=== PATIENT | male | born 1990 | race American Indian/Alaskan Native ===

== ENCOUNTER 2018-12-26 06:23 | Emergency (ER) | payer OTHER ==
[2018-12-26 06:32] VITALS: BP 131/81
--- NOTE | 2018-12-26 07:07 | XRay Report ---
PROCEDURE: XR HUMERUS 2+V RT TECHNIQUE: Right humerus radiographs, AP and lateral views. HISTORY: fall, pain and swelling to elbow and upper arm COMPARISONS: None . FINDINGS: Fracture (s) and/or Dislocation(s): None . Joint space(s): Normal . Soft tissues: Normal . Bone mineralization: Normal . Foreign bodies: None . IMPRESSION: Normal Examination . This document is electronically signed by Jan Velazquez MD., December 26 2018 07:05:28 AM ET
--- NOTE | 2018-12-26 07:48 | XRay Report ---
PROCEDURE: XR ELBOW 2V RT TECHNIQUE: AP and lateral views right elbow HISTORY: fall, pain and swelling to elbow and upper arm COMPARISONS: None FINDINGS: Right elbow joint effusion is present. Minimal articular surface irregularity involving the radial he ad on lateral view. No other potential fractures are seen. The distal humerus appears intact. The uln a appears intact. IMPRESSION: Right elbow joint effusion with suspected minimally displaced intra-articular radial head fracture. This document is electronically signed by Crzu Chance MD., December 26 2018 07:46:20 AM ET
--- NOTE | 2018-12-26 08:40 | Emergency Department Report ---
ED Upper Extremity Inj HPI - General Chief Complaint: Extremity Injury, Upper Stated Complaint: RIGHT ARM PAIN Time Seen by Provider: 12/26/18 08:38 Source: patient Mode of arrival: Ambulatory Limitations: No Limitations - History of Present Illness Initial Comments: Patient is 28 years old male was no significant past medical history. Patient presented to the ER complaining of right elbow pain since last night patient stated that he was playing last control and he fell and landed on his elbow. Patient denied any other injuries. MD Complaint: Injury to:: right, elbow -: Last night Other Extremity Injury: Elbow: Right, Arm: Right Other Injuries: none Place: outdoors Improves With: immobilization Worsens With: movement of extremity Context: fall Associated Symptoms: denies other symptoms - Related Data Allergies Allergy/AdvReac Type Severity Reaction Status Date / Time nuts Allergy Swelling Uncoded 12/26/18 06:26 seafood Allergy Swelling Uncoded 12/26/18 06:26 ED Review of Systems ROS: Stated complaint: RIGHT ARM PAIN Other details as noted in HPI Comment: All other systems reviewed and negative Constitutional: denies: chills, fever Respiratory: denies: cough, shortness of breath Gastrointestinal: denies: abdominal pain, nausea ED Past Medical Hx - Past Medical History Previous Medical History?: Yes Hx Asthma: Yes - Surgical History Past Surgical History?: No - Social History Smoking Status: Current Every Day Smoker Substance Use Type: Alcohol ED Physical Exam - General Limitations: No Limitations General appearance: alert, in no apparent distress - Head Head exam: Present: atraumatic, normocephalic, normal inspection - Eye Eye exam: Present: normal appearance - ENT ENT exam: Present: normal exam, normal orophraynx, mucous membranes moist - Neck Neck exam: Present: normal inspection, full ROM. Absent: tenderness, meningismus, lymphadenopathy, thyromegaly - Respiratory Respiratory exam: Present: normal lung sounds bilaterally. Absent: respiratory distress, wheezes, rales, rhonchi, chest wall tenderness, accessory muscle use, decreased breath sounds, prolonged expiratory - Cardiovascular Cardiovascular Exam: Present: regular rate, normal rhythm, normal heart sounds - GI/Abdominal GI/Abdominal exam: Present: normal bowel sounds. Absent: distended, tenderness, guarding, rebound, rigid, organomegaly, mass, bruit, pulsatile mass, hernia - Extremities Exam Extremities exam: Present: normal capillary refill. Absent: pedal edema, calf tenderness - Expanded Upper Extremity Exam Right Shoulder Exam: Present: normal inspection, full ROM. Absent: tenderness, swelling, abrasion Upper Arm exam: Present: normal inspection, full ROM. Absent: tenderness, swelling Elbow exam: Present: tenderness, swelling, abrasion, effusion, tenderness over radial head. Absent: full ROM, laceration, ecchymosis, deformity, dislocation, erythema, pain w/ pronation/supination Forearm Wrist exam: Present: normal inspection, full ROM. Absent: tenderness, swelling Hand Wrist exam: Present: normal inspection, full ROM. Absent: tenderness Neuro motor exam: Present: wrist extension intact, thumb opposition intact, thumb IP flexion intact, thumb adduction intact, fingers 2-5 abduction intact Neurosensory exam: Present: 2-point discrimination, radial nerve intact, ulnar nerve intact, median nerve intact Vascular: Present: normal capillary refill - Back Exam Back exam: Present: normal inspection, full ROM. Absent: tenderness, CVA tenderness (R), CVA tenderness (L), muscle spasm, paraspinal tenderness, vertebral tenderness - Neurological Exam Neurological exam: Present: alert, oriented X3, CN II-XII intact, normal gait - Skin Skin exam: Present: warm, intact, normal color ED Course Vital Signs 12/26/18 12/26/18 06:30 06:32 Temperature 97.9 F 97.9 F Pulse Rate 71 71 Respiratory 18 18 Rate Blood Pressure 131/81 Blood Pressure 131/81 [Left] O2 Sat by Pulse 100 100 Oximetry - Orthopedic Splinting/Casting Injury #1 Side: right Upper Extremity Injury Location: elbow Upper Extremity Immobilizer: sugartong splint ED Medical Decision Making - Radiology Data Radiology results: report reviewed Referring Physician: ED DOC Patient Name: ISMAEL HARO Date of : 1990 Sex: Male Report Date: 2018-12-26 Report Status: Finalized Findings [address] [address] XRay Report Signed Patient: ISMAEL HARO MR#: [id number] : 1990 Acct:[id number] Age/Sex: 28 / M ADM Date: 12/26/18 Loc: ED Attending Dr: Ordering Physician: ED MD ELISABET Date of Service: 12/26/18 Procedure(s): XR elbow 2V RT Accession Number(s): [id number] cc: ED MD ELISABET Fluoro Time In Minutes: PROCEDURE: XR ELBOW 2V RT TECHNIQUE: AP and lateral views right elbow HISTORY: fall, pain and swelling to elbow and upper arm COMPARISONS: None FINDINGS: Right elbow joint effusion is present. Minimal articular surface irregularity involving the radial head on lateral view. No other potential fractures are seen. The distal humerus appears intact. The ulna appears intact. IMPRESSION: Right elbow joint effusion with suspected minimally displaced intra-articular radial head fracture. This document is electronically signed by Cruz Laurent MD., December 26 2018 07:46:20 AM ET Transcribed By: MB Dictated By: CRUZ LAURENT MD Electronically Authenticated By: CRUZ LAURENT MD Signed Date/Time: 12/26/18 0748 DD/ 4 TD/TT: 12/26/18705 Critical care attestation.: If time is entered above; I have spent that time in minutes in the direct care of this critically ill patient, excluding procedure time. ED Disposition Clinical Impression: Right radial head fracture Disposition: DC-01 TO HOME OR SELFCARE Is pt being admited?: No Condition: Stable Instructions: Elbow Fracture in Adults (ED) Referrals: GLADYS BLAND MD [Primary Care Provider] - 3-5 Days YANELI CORCORAN MD [Staff Physician] - 3-5 Days
== END 2018-12-26 09:31 | disposition home or self-care (01) ==
LOC: ED 06:23
DX: S52.121A Displaced fracture of head of right radius, initial encounter for closed fracture (principal); J45.909 Unspecified asthma, uncomplicated; F17.200 Nicotine dependence, unspecified, uncomplicated; Z91.018 Allergy to other foods; Z91.013 Allergy to seafood; W19.XXXA Unspecified fall, initial encounter; Y93.89 Activity, other specified; Y92.410 Unspecified street and highway as the place of occurrence of the external cause; Y99.8 Other external cause status